=== PATIENT | female | born 1955 | race Caucasian/White ===

== ENCOUNTER 2021-11-20 00:39 | Day surgery (SDC) | payer BC, SELFPAY ==
[2021-11-15 12:17] VITALS: BMI 26.4
--- NOTE | 2021-11-15 12:25 | PC.NURSE ---
Report to the Outpatient Waiting Room, entrance under the green pavilion located off [facility], at time 0900 on date 11/20/21. OR Time: 1100. - You will be asked a series of questions to screen for COVID 19 for your protection. - A mask is required within the hospital. - No visitors are allowed at this time. Preoperative COVID Testing Requirements: No COVID Test needed if: (proof is required; if not received patient will have Rapid Test prior to entry) - Patient has received COVID Vaccine at least 14 days prior to procedure date or - Patient has positive COVID test result within last 90 days of surgery date. COVID Test needed if above criteria is not met Patients may have clear liquids (water, carbonated beverages, clear teas, apple juice) until 3 hours prior to surgery with a maximum of 20 ounces. - No food from midnight until time of surgery Take the following medications with a SIP of water the morning of surgery: NONE Medications to discontinue per physician: VITAMINS/SUPPLEMENTS Date to take last dose: 11/16/21 Please no make-up, nail slovenian, hairspray, perfume, deodorant, or body powder the day of surgery. No jewelry (including any body piercings) or valuables the day of surgery, leave them at home. Please take a shower or bath the night before, or the morning of, surgery with an antibacterial soap. Wear comfortable, loose fitting clothing. - Jewelry must be removed prior to entering the operating room. Rings and piercings that are not removed may be cut off. - The hospital will not accept responsibility for valuables. - Please leave all valuables, including medications, at home the day of surgery. If you are going home after surgery, a licensed yard truck driver must drive you home. - NO public transportation without another adult. - We recommend that an adult stay with you for 24 hours following discharge. - We also recommend that you do not drive, make important decision, drink alcoholic beverages, or take any drugs that were not prescribed by your health care provider for at least 24 hours after your discharge time. Follow any additional instructions given to you from your surgeon. Telephone instructions given to BRANT CAVANAUGH and asked if any additional questions and then verbalized understanding. Patient advised to call surgeon office or pre surgery nurse liaison [phone] if any additional questions.
--- NOTE | 2021-11-20 07:22 | P.HP_ITS ---
History of Present Illness History of Present Illness Consent: Risks, benefits, and alternatives have been discussed and questions answered. Patient agrees to proceed with procedure. Chief complaint: thickened endometrial lining Narrative: Clayton Dorman is a 66 year old female with thickened endometrium measuring 8mm. The patient denies vaginal bleeding. She underwent CT scan in the emergency room due to GI complaints and chest heaviness and was told to follow-up with her lung splitter. Ultrasound was done and revealed a thickened endometrium. It was recommended to proceed with D&C hysteroscopy for further evaluation. Risks of infection, bleeding, perforation, and possible pathology were reviewed. Patient voices understanding and agrees to proceed. Review of Systems Review of Systems: not repeated day of surgery; patient states no changes in status PMFSH Past Medical History Medical History (Updated 11/20/21 @ 07:25 by Yancy Childs MD) Hypothyroid Surgical History Surgical History (Updated 11/20/21 @ 07:24 by Yancy Childs MD) History of hysteroscopy 2013 Social History Social History Smoking status: Never smoker Alcohol intake: current Drinks per week: 3 Substance use: never Substance use type: does not use Living arrangements: with family Spiritual care concerns: No Meds Home Medications and Allergies Home Medications Medication Instructions Recorded Confirmed Type cholecalciferol (vitamin D3) 25 mcg PO DAILY 11/15/21 11/15/21 History [Vitamin D3] estradiol 0.5 mg PO HS 11/15/21 11/15/21 History levothyroxine [Synthroid] 150 mcg PO HS 11/15/21 11/15/21 History losartan-hydrochlorothiazide 1 tablet PO DAILY 11/15/21 11/15/21 History multivitamin 1 tablet PO DAILY 11/15/21 11/15/21 History progesterone micronized 100 mg PO HS 11/15/21 11/15/21 History Allergies Allergy/AdvReac Type Severity Reaction Status Date / Time Sulfa (Sulfonamide Allergy Mild Hives Verified 11/20/21 07:11 Antibiotics) Exam Const: General: healthy appearing and alert Orientation/consciousness: patient oriented x3 Resp: Effort & Inspection: normal respiratory effort Auscultation: clear to auscultation bilaterally Cardio: Rate: regular rate Rhythm: regular rhythm GI: GI Palp: Yes Soft to palpation, No Tenderness to palpation present (GI) and No Palpable mass present : External Female Exam: normal external appearance Speculum Exam - Vagina: normal vaginal discharge and vagina atrophic Speculum Exam - Cervix: normal appearance of the cervix and Other cervical findings present (Cervical stenosis) Bimanual exam- vagina & uterus: uterine size normal and consistency normal Bimanual Exam- Adnexa, other: normal adnexae and No adnexal tenderness Neuro: General: patient oriented x3 Assessment and Plan Assessment and plan (1) Thickened endometrium: Code(s): R93.89 - Abnormal findings on diagnostic imaging of other specified body structures Status: Acute Assessment and Plan: Plan to proceed with D&C hysteroscopy
--- NOTE | 2021-11-20 07:22 | WPDHPUPDATE1 ---
History and Physical Update Update Date/Time: 11/20/21 07:22 History and Physical has been reviewed, including an updated exam of the patient. There are NO changes in the patient's condition. Risks, benefits, and alternatives have been discussed and questions answered. Patient agrees to proceed with procedure.
[2021-11-20 08:57] VITALS: BP 136/88; PULSE 85; RESP 16; TEMP 36.9; O2SAT 100
[2021-11-20] MEDS: ACETAMINOPHEN 500 MG TABLET 1000 MG PO (09:10)
[2021-11-20] MEDS: LACTATED RINGERS 1,000 ML 30 ML IV CONT (09:24)
--- NOTE | 2021-11-20 10:07 | WPDANESEPPF ---
Anes - Initial Pre Proc Eval Procedure: Operation Date: 11/20/21 11:00 Proposed Procedures p Hysteroscopy Dilation and Curettage - Yancy Childs MD Date/Time: 11/20/21 10:07 Surgeon: Yancy Childs MD Pre Op Diagnosis: thickened endometrial lining Patient Data Age: 66 Gender: F Height: 1.55 m Weight: 63.4 kg Last Vital Signs Temp 36.9 C 11/20/21 08:57 Pulse 85 11/20/21 08:57 Resp 16 11/20/21 08:57 BP 136/88 11/20/21 08:57 Pulse Ox 100 11/20/21 08:57 Allergies Allergy/AdvReac Type Severity Reaction Status Date / Time Sulfa (Sulfonamide Allergy Intermediate Hives Verified 11/20/21 09:03 Antibiotics) Home Medications Medication Instructions Recorded Confirmed Type cholecalciferol (vitamin D3) 25 mcg PO DAILY 11/15/21 11/20/21 History [Vitamin D3] estradiol 0.5 mg PO HS 11/15/21 11/20/21 History levothyroxine [Synthroid] 150 mcg PO HS 11/15/21 11/20/21 History losartan-hydrochlorothiazide 1 tablet PO DAILY 11/15/21 11/20/21 History multivitamin 1 tablet PO DAILY 11/15/21 11/20/21 History progesterone micronized 100 mg PO HS 11/15/21 11/20/21 History Laboratory Tests 11/20/21 09:16 Sodium Pending Potassium Pending Chloride Pending Carbon Dioxide Pending Anion Gap Pending BUN Pending Creatinine Pending Estim Creat Clear Calc Pending Estimated GFR Pending Glucose Pending Calcium Pending Patient hx anesthesia problems: none Family hx anesthesia problems: none Results Review: All pre-operative results and documents have been reviewed as part of the pre-operative evaluation. [facility] Past Medical History Medical History Asthma Hypertension Hypothyroid Surgical History Surgical History History of hysteroscopy 2013 Social History Social History Smoking status: Never smoker Alcohol intake: current Drinks per week: 3 Substance use: never Substance use type: does not use Living arrangements: with family Spiritual care concerns: No Anes - Eval Final PreProcedure Day of Procedure 11/20/21 10:07 Patient weight: overweight Heart: regular rate and rhythm Lungs: clear to auscultation Airway: Mallampati scale class II Neurological: alert and oriented Last oral intake: >/= 8 hours ASA classification: II Emergent: no Anesthetic plan: proceed Anesthesia type and monitoring: general GIVS and standard monitoring Results Review: All pre-operative results and documents have been reviewed as part of the pre-operative evaluation. Informed Consent: The patient's anesthetic plan and its attendant risks and benefits were discussed with the patient/family/POA. Questions were solicited and answers provided to the satisfaction of the patient/family/POA.
[2021-11-20 10:20] LABS: Anion Gap 7 mmol/L (8-16); Blood Urea Nitrogen 16 mg/dL (7-17); Calcium 9.2 mg/dL (8.4-10.2); Carbon Dioxide 27 mmol/L (22-30); Chloride 102 mmol/L (98-107); Estimated CRCL calculation 60 ml/min; Estimated Glomerular Filt Rate > 60; Glucose 114 mg/dL (65-110); Potassium 3.9 mmol/L (3.4-5.0); Sodium 136 mmol/L (137-145)
[2021-11-20 11:09] VITALS: BP 117/67; PULSE 80; RESP 16; O2SAT 95
--- NOTE | 2021-11-20 11:24 | W.PM.PROC2 ---
Procedure Note - Detailed Date of Procedure 11/20/21 Pre-op Diagnosis thickened endometrial lining Post-op Diagnosis same Procedure Performed D&C hysteroscopy with myosure resection of polyp Surgeon Yancy Childs MD Anesthesia MAC and local Findings scarred external os; uterus 6 cmwith thickened endometrium posterior appearing to be a polyp; atrophic remainder of endometrium Description of Procedure The patient was taken to the operating room and placed under anesthesia in the dorsal lithotomy position. She was prepped and draped in the sterile fashion. The bivalve speculum in placed in the vagina. The os is not visible. The cervix is grasped anteriorly with a tenaculum. 11 blade scalpel is used to open the os in a chance-cross manner. The os finders were then used and then the small dilator and the cavity finally able to be entered. The uterus was sounded to 6 cm. The cervix was serially dilated to an 8 Hegar. The diagnostic scope is placed with the stated findings. the XL myosure is opened and placed. The polyp is removed under direct visualization. The scope is removed. The medium sharp curette is used to curette the remainder of the endometrium until a good uterine cry is noted in all areas. Monsels is appplied to the bleeding cervical os. All insruments are removed. The sponge, instruments, and needle counts are correct per the OR staff. The patient is awakened and taken to the recovery room. Estimated Blood Loss -20.0 Packing No Pathology yes (endometrial curettings and shavings) Complications No immediate complications Condition stable Disposition PACU
[2021-11-20 11:40] VITALS: BP 138/68; PULSE 85
[2021-11-20] MEDS: oxyCODONE HCL (*CRX) 5 MG TAB IR PO (11:42)
[2021-11-20 12:10] VITALS: BP 149/75; PULSE 66
== END 2021-11-20 12:20 | disposition home or self-care (01) ==
PROVIDERS: Anesthesiology; PCP Family Medicine; Visit Provider Obstetrics & Gynecology Gynecology
PROC: 0U5B8ZZ Destruction of Endometrium, Via Natural or Artificial Opening Endoscopic (ICD-10-PCS; CPT 58563; principal; 2021-11-20 11:00)
DX: N84.0 Polyp of corpus uteri (principal); E03.9 Hypothyroidism, unspecified; I10 Essential (primary) hypertension; J45.909 Unspecified asthma, uncomplicated
CPT/HCPCS: 58558; 36415; 80048; 88305; A9270; J1100; J2250; J2405; J2704; J3010; J7030; J7120